=== PATIENT | female | born 2000 | race Two or more races ===

== ENCOUNTER 2022-06-22 07:51 | Emergency (ER) | payer MEDICAID, SELFPAY ==
--- NOTE | ~2022-06-22 | US_ITS ---
EXAMINATION: OB ULTRASOUND CLINICAL INFORMATION: 17 weeks . Left lower quadrant pain. Gestational age from earlier outside ultrasound 17 weeks 5 days with estimated date of delivery of 11/25/2022. COMPARISON: None TECHNIQUE: Transabdominal second trimester OB ultrasound. Dedicated survey was not performed. FINDINGS: There is a single viable intrauterine fetus in cephalic position. heart rate is 144 bpm. measurements: BPD 4 cm suggesting gestational age 18 weeks 1 day. OFD 4.9 cm suggesting gestational age 17 weeks 5 days. Head circumference 14.3 cm suggesting gestational age 14 weeks 4 days. Abdominal circumference 11.5 cm suggesting gestational age 17 weeks 3 days. Femur length 2.5 cm suggesting gestational age 17 weeks 5 days. measurements are concordant. From today's measurements weight is estimated at 7 ounces or 1 9 8 g which is 33rd percentile for patient's gestational age. There is a left lateral/fundal placenta with grade 1 changes. Deepest pocket of amniotic fluid measures 4.8 cm. There is a left lateral/fundal placenta with grade 0 changes. Cervical length measures 3.4 cm. The right ovary is normal-appearing and measures 3.1 x 1.5 x 2.7 cm. The left ovary measures 3.8 x 2.3 x 2.2 cm. There is a 1.6 x 1 x 1.5 cm left ovarian cyst probably representing a corpus luteum. There is no fluid in the pelvis. From today's measurements, gestational age is estimated at 17 weeks 5 days with estimated date of delivery of 11/25/2022. This agrees from date from earlier outside ultrasound. US/US OB limited IMPRESSION: Single viable intrauterine . Size agrees with date from earlier outside exam. Normal-appearing placenta.
[2022-06-22 07:55] VITALS: BP 131/77; PULSE 88; RESP 16; TEMP 36.6; O2SAT 100; BMI 24.5
--- NOTE | 2022-06-22 08:38 | ED.PREGNANCY ---
HPI - General Chief complaint: Abdominal Pain Stated complaint: , abd pain Time Seen by Provider: 06/22/22 08:12 Source: patient Mode of arrival: ambulatory Limitations: no limitations History of Present Illness HPI Narrative: 21-year-old female who is [id number] currently 17 weeks being followed by [facility] was a woman OBGYN last menstrual period February 08 with a due date of November 22 presenting to the ED with complaints of left lower quadrant abdominal pain/cramping over the past few days worse today. She denies any fevers, chills, dizziness, headaches, neck pain/stiffness, trouble swallowing or breathing, chest pain or shortness of breath, dyspnea on exertion, orthopnea, palpitations, paresthesias, flank pain, hematuria, abnormal vaginal discharge, vaginal bleeding, radiation of the abdominal pain, recent travel or sick contacts, recent falls or trauma, rashes, diarrhea constipation, black or bloody stools or any other symptoms complaints or concerns at this time. MD Complaint: abdominal pain Onset (ago): day(s) (Past few days worse today) Pain Consistency: constant Location: abdomen (Left lower quadrant) Severity: mild Quality: Cramping and Aching Relieving factors: none Exacerbating factors: none Associated symptoms: denies other symptoms Vaginal discharge: none Vaginal bleeding: none Date of Last Menstrual Period: 02/08/22 Hx Last Menstrual Period: Normal Patient : Yes Expected Date of Delivery: 11/22/22 Number of Weeks : 17 OB History - Current : no complications care: followed by OB and previous ultrasound confirms IUP Related Data Allergies Allergy/AdvReac Type Severity Reaction Status Date / Time No Known Allergies Allergy Verified 06/22/22 07:54 Review of Systems Review of Systems: Constitutional : No Fever, No Chills ENT/Mouth : No sore throat, No Rhinorrhea Eyes: No Eye Pain, No Redness Cardiovascular : No Chest Pain, No SOB Respiratory : No Cough, No Sputum, No Wheezing Gastrointestinal : No Nausea, No Vomiting, No Diarrhea, positive abdominal pain, Genitourinary : No irregular bleeding, No Dysuria, No Urinary Frequency, No pelvic pain Musculoskeletal : No Myalgias Skin : No rash Neuro : No Weakness, No Headache Psych : No Anxiety/Panic, No Depression Heme/Lymph: No bruising, No Lymphadenopathy Endocrine : No Polyuria, No Polydipsia Yes all other systems are reviewed and are negative [facility] Past Medical History Attestation statement: The following information was validated with the patient. Source: old records reviewed and nursing notes reviewed Date of Last Menstrual Period: 02/08/22 Hx Last Menstrual Period: Normal Social History Social History Advance Directives: No Advance Directives Information Provided: No Patient : Yes Physical Exam Vital Signs: Vital Signs: Last Vital Signs Temp 98 F 06/22/22 07:55 Pulse 88 06/22/22 07:55 Resp 16 06/22/22 07:55 BP 131/77 06/22/22 07:55 Pulse Ox 100 06/22/22 07:55 O2 Del Method 06/22/22 07:55 BMI result Body Mass Index 24.5 vital signs have been reviewed as normal and appeared to be correct. Blood pressure normal. Heart rate normal. Respiration rate normal. Temperature normal. Oxygen saturation normal. Appearance: Alert. Oriented X3. No acute distress. Head: Normal external exam. Normocephalic. Atraumatic. Eyes: PERRLA. EOMI. Conjunctiva and sclera normal. Eyelids normal. ENT: Pharynx normal. Uvula midline. Moist mucous membranes. No trismus noted. No drooling noted. No muffled voice noted. Neck: Normal inspection. Neck supple. FROM. No adenopathy. Thyroid Normal. No meningeal signs. No neck mass noted. CVS: Normal heart rate and rhythm. Heart sound normal. No murmurs noted. Pulses normal throughout. Respiratory: No respiratory distress. Painless inspiration. Breath sounds normal. No wheezes/rales/rhonchi noted. Chest nontender. No accessory muscle usage noted or decreased air movement noted. Abdomen: Soft and mild tenderness palpation to left suprapubic area. Bowel sounds normal in all 4 quadrants. No distention noted. No organomegaly noted. No visible injury noted. : Supervised by KURTIS Vigil. Normal external appearance of urethra. No lesions/lacerations or discharge or tenderness noted. Speculum exam normal appearance/palpation of vagina normal. The cervix is mildly erythematous and some thin clear/light yellow colored discharge is noted although cervix is closed. No additional discharge is noted from the cervix and no foreign bodies are noted. Otherwise no vaginal erythema. No foreign bodies noted. No vaginal laceration/lesions or active bleeding noted. No tissue present in vagina. No vaginal mass noted. No vaginal swelling noted. No vaginal tenderness noted. Normal palpation of cervix. Cervical os is closed. No cervical lesion/mass. No Bartholin cyst noted. No cervical motion tenderness noted. Negative chandelier sign. Normal bimanual exam. Uterine size normal. Bladder normal to palpation. Uterine consistency normal. Normal cervical palpation. Uterine mobility normal. Uterine shape normal. Normal adnexa. Normal rectovaginal exam. Back: No CVA tenderness. Full range of motion noted. Skin: Skin warm and dry. Normal skin color. Normal skin turgor. No rashes/lesions/lacerations noted. Extremities: No lower extremity edema. Extremities exhibit normal range of motion. Extremities nontender. Neuro: Oriented X 3. No motor deficit. No sensory deficit. Reflexes normal. Course Course Course Narrative: 8:20am - 21-year-old female who is [id number] currently 17 weeks being followed by [facility] was a woman OBGYN last menstrual period February 08 with a due date of November 22 presenting to the ED with complaints of left lower quadrant abdominal pain/cramping over the past few days worse today. Plan: Labs, UA, serum quant, Rh factor, OB ultrasound re-evaluate. Reevaluation(s) Reevaluation #1: - labs returned and all within normal limits. Serum quant appropriately elevated at 22,884. UA within normal limits no evidence of UTI. - OB ultrasound revealed single viable intrauterine size agrees with dates from earlier outside exam normal-appearing placenta - I did a vaginal exam nd spoke to Dr. Pradhan due to small amount of discharge and mild erythema to cervix although cervical os is closed and patient reports she was recently tested for all STDs along with bacterial vaginosis and Trichomonas and was negative last 1 by her OB. Therefore we sent swabs and Dr. Pradhan reported she can follow up with her OBGYN as scheduled and to return if any new or worsening symptoms. Patient understands agrees with this plan. Time: 11:31 [facility] - OB/Uterine Contractions Medical Records Attestation: I reviewed the patient's medical records. Lab Data Attestation: I reviewed the patient's lab results. Result diagrams: 06/22/22 08:54 06/22/22 08:54 Labs: Lab Results 06/22/22 06/22/22 06/22/22 Range/Units 08:53 08:54 08:54 WBC 8.4 (4.8-10.8) X10*3/uL RBC 3.95 L (4.20-5.50) X10*6/uL Hgb 12.9 (12.0-16.0) g/dl Hct 36.5 L (37.0-47.0) % MCV 92.4 (80.0-98.0) fL MCH 32.7 (27.0-33.0) pg MCHC 35.3 H (31.0-35.0) g/dl RDW 11.9 (11.0-16.0) % Plt Count 227 (160-400) X10*3/uL MPV 10.3 (9.4-12.3) fL Immature Gran % (Auto) 0.4 (0.0-0.4) % Neut % (Auto) 69.7 (45-73) % Lymph % (Auto) 18.0 L (20-40) % [place] % (Auto) 5.8 (2-11) % Eos % (Auto) 5.9 H (0-4) % Baso % (Auto) 0.2 (0-2) % Lymph # (Auto) 1.5 (1.2-4.9) X10*3/uL [place] # (Auto) 0.5 (0.1-1.2) X10*3/uL Eos # (Auto) 0.5 H (0.0-0.4) X10*3/uL Baso # (Auto) 0.0 (0.0-0.2) X10*3/uL Abs Immat Gran (auto) 0.03 (0.00-0.03) X10*3/uL Absolute Neuts (auto) 5.9 (2.0-8.3) x10*3/uL Absolute Nucleated RBC 0.000 (0.0-0.012) X10*3/uL Nucleated RBC % (auto) 0.0 (0.0-0.2) /100WBC Sodium 138 (135-145) mmol/L Potassium 3.9 (3.3-5.1) mmol/L Chloride 102 (96-108) mmol/L Carbon Dioxide 27 (22-29) mmol/L Anion Gap 13 (12-20) BUN 9 (9-16) mg/dL Creatinine 0.59 (0.5-1.4) mg/dL Estim Creat Clear Calc 126.5 Estimated GFR > 60 Random Glucose 73 (60-115) mg/dL Calcium 9.1 (8.4-10.2) mg/dL Magnesium 1.9 (1.6-2.6) mg/dL Total Bilirubin 0.3 (0.0-1.0) mg/dL AST 13 (5-31) U/L ALT 15 (0-31) U/L Alkaline Phosphatase 50 (39-117) U/L Total Protein 6.9 (6.5-8.0) g/dL Albumin 3.9 (3.5-5.0) g/dL Beta HCG, Quant mIU/mL Urine Color Urine Appearance Urine pH (5.0-8.0) Ur Specific [place] (1.005-1.025) Urine Protein (Neg-Trace) mg/dL Urine Glucose (UA) (Negative) mg/dL Urine Ketones (Negative) mg/dL Urine Blood (Negative) Urine Nitrite (Negative) Ur Leukocyte Esterase (Negative) Blood Type B Positive 06/22/22 06/22/22 Range/Units 08:54 08:54 WBC (4.8-10.8) X10*3/uL RBC (4.20-5.50) X10*6/uL Hgb (12.0-16.0) g/dl Hct (37.0-47.0) % MCV (80.0-98.0) fL MCH (27.0-33.0) pg MCHC (31.0-35.0) g/dl RDW (11.0-16.0) % Plt Count (160-400) X10*3/uL MPV (9.4-12.3) fL Immature Gran % (Auto) (0.0-0.4) % Neut % (Auto) (45-73) % Lymph % (Auto) (20-40) % [place] % (Auto) (2-11) % Eos % (Auto) (0-4) % Baso % (Auto) (0-2) % Lymph # (Auto) (1.2-4.9) X10*3/uL [place] # (Auto) (0.1-1.2) X10*3/uL Eos # (Auto) (0.0-0.4) X10*3/uL Baso # (Auto) (0.0-0.2) X10*3/uL Abs Immat Gran (auto) (0.00-0.03) X10*3/uL Absolute Neuts (auto) (2.0-8.3) x10*3/uL Absolute Nucleated RBC (0.0-0.012) X10*3/uL Nucleated RBC % (auto) (0.0-0.2) /100WBC Sodium (135-145) mmol/L Potassium (3.3-5.1) mmol/L Chloride (96-108) mmol/L Carbon Dioxide (22-29) mmol/L Anion Gap (12-20) BUN (9-16) mg/dL Creatinine (0.5-1.4) mg/dL Estim Creat Clear Calc Estimated GFR Random Glucose (60-115) mg/dL Calcium (8.4-10.2) mg/dL Magnesium (1.6-2.6) mg/dL Total Bilirubin (0.0-1.0) mg/dL AST (5-31) U/L ALT (0-31) U/L Alkaline Phosphatase (39-117) U/L Total Protein (6.5-8.0) g/dL Albumin (3.5-5.0) g/dL Beta HCG, Quant 99278 mIU/mL Urine Color Yellow Urine Appearance Clear Urine pH 6.5 (5.0-8.0) Ur Specific [place] 1.020 (1.005-1.025) Urine Protein Negative (Neg-Trace) mg/dL Urine Glucose (UA) Negative (Negative) mg/dL Urine Ketones Negative (Negative) mg/dL Urine Blood Negative (Negative) Urine Nitrite Negative (Negative) Ur Leukocyte Esterase Negative (Negative) Blood Type Imaging Data OB US: Attestation: I personally reviewed and interpreted this imaging study as follows: Radiologist's impression: TECHNIQUE: Transabdominal second trimester OB ultrasound. Dedicated survey was not performed.? FINDINGS: There is a single viable intrauterine fetus in cephalic position. heart rate is 144 bpm. measurements: BPD 4 cm suggesting gestational age 18 weeks 1 day. OFD 4.9 cm suggesting gestational age 17 weeks 5 days. Head circumference 14.3 cm suggesting gestational age 14 weeks 4 days. Abdominal circumference 11.5 cm suggesting gestational age 17 weeks 3 days. Femur length 2.5 cm suggesting gestational age 17 weeks 5 days. measurements are concordant. From today's measurements weight is estimated at 7 ounces or 1 9 8 g which is 33rd percentile for patient's gestational age. There is a left lateral/fundal placenta with grade 1 changes. Deepest pocket of amniotic fluid measures 4.8 cm. There is a left lateral/fundal placenta with grade 0 changes. Cervical length measures 3.4 cm. The right ovary is normal-appearing and measures 3.1 x 1.5 x 2.7 cm. The left ovary measures 3.8 x 2.3 x 2.2 cm. There is a 1.6 x 1 x 1.5 cm left ovarian cyst probably representing a corpus luteum. There is no fluid in the pelvis. From today's measurements, gestational age is estimated at 17 weeks 5 days with estimated date of delivery of 11/25/2022. This agrees from date from earlier outside ultrasound. US/US OB limited IMPRESSION: Single viable intrauterine . Size agrees with date from earlier outside exam. Normal-appearing placenta. Procedures Perimortem Number of Weeks : 17 Discharge Plan Discharge Clinical Impression: Abdominal pain affecting Patient Disposition: Home, Self-Care Instructions: Abdominal Pain in (ED) Referrals: Physician,Unknown J [Primary Care Provider] - 2 days (your pcp/obgyn)
[2022-06-22 09:05] LABS: MANUAL DIFF FLAG NO
[2022-06-22 09:06] LABS: Basophils Percent Auto 0.2 % (0-2); Eosinophils Absolute Auto 0.5 X10*3/uL (0.0-0.4); Eosinophils Percent Auto 5.9 % (0-4); Hematocrit 36.5 % (37.0-47.0); Hemoglobin 12.9 g/dl (12.0-16.0); Imm Gran Abs Auto 0.03 X10*3/uL (0.00-0.03); Imm Gran Pct Auto 0.4 % (0.0-0.4); Lymphocytes Absolute Auto 1.5 X10*3/uL (1.2-4.9); Mean Corpuscular HGB Conc 35.3 g/dl (31.0-35.0); Mean Corpuscular Hemoglobin 32.7 pg (27.0-33.0); Mean Corpuscular Volume 92.4 fL (80.0-98.0); Mean Platelet Volume 10.3 fL (9.4-12.3); Monocytes Absolute Auto 0.5 X10*3/uL (0.1-1.2); Monocytes Percent Auto 5.8 % (2-11); Neutrophils Absolute Auto 5.9 x10*3/uL (2.0-8.3); Neutrophils Percent Auto 69.7 % (45-73); Platelet Count 227 X10*3/uL (160-400); Red Blood Count 3.95 X10*6/uL (4.20-5.50); Red Cell Distribution Width 11.9 % (11.0-16.0); White Blood Count 8.4 X10*3/uL (4.8-10.8)
[2022-06-22 09:10] LABS: Appearance Urine Clear; Color Urine Yellow; Glucose Urine UA Negative (Negative); Leukocyte Esterase Urine Negative (Negative); Nitrite Urine Negative (Negative); PH 6.5 (5.0-8.0); Urine Blood Negative (Negative); Urine Ketones Negative (Negative); Urine Protein Negative (Neg-Trace)
[2022-06-22 09:23] LABS: Alanine Aminotransferase 15 U/L (0-31); Albumin Level 3.9 g/dL (3.5-5.0); Alkaline Phosphatase 50 U/L (39-117); Anion Gap 13 (12-20); Aspartate Amino Transferase 13 U/L (5-31); Bilirubin Total 0.3 mg/dL (0.0-1.0); Blood Urea Nitrogen 9 mg/dL (9-16); Calcium 9.1 mg/dL (8.4-10.2); Carbon Dioxide 27 mmol/L (22-29); Chloride 102 mmol/L (96-108); Creatinine Clr Calc Pharmacy 126.5; Estimated Glomerular Filt Rate > 60; Glucose Random 73 mg/dL (60-115); Magnesium 1.9 mg/dL (1.6-2.6); Potassium 3.9 mmol/L (3.3-5.1); Sodium 138 mmol/L (135-145); Total Protein 6.9 g/dL (6.5-8.0)
[2022-06-22 09:47] LABS: HCG Quantitative 22884 mIU/mL
--- NOTE | 2022-06-22 11:31 | PM.OBCN ---
OB Consult Note - [facility] Data Service Date: 06/22/22 Primary Care Provider: Unknown Physician Narrative I was consulted on Raji Jin who is a 21 year old para 0 currently 17 weeks being presented to the emergency room complaining of left lower quadrant abdominal pain/cramping on and off over the past few days worse today.? She denies any vaginal discharge or bleeding, no urinary or GI symptoms, no feverish less or chills. Workup done emergency room include CBC, chemistry, urine all negative. Ob ultrasound was done also on was negative OB [facility] Social History Social History Advance Directives: No Advance Directives Information Provided: No Patient : Yes Meds Allergies Allergy/AdvReac Type Severity Reaction Status Date / Time No Known Allergies Allergy Verified 06/22/22 07:54 OB Physical Exam Physical Exam Additional Comments: Per JENNIFER Hall in the emergency room, abdominal exam is soft and benign with no tenderness, pelvic exam yellowish discharge , closed cervix, no other findings Evaluation Baseline FHR:: 150 OB Consult Results Labs CBC & Chem 7: 06/22/22 08:54 06/22/22 08:54 Labs: Short CBC 06/22/22 Range/Units 08:54 WBC 8.4 (4.8-10.8) X10*3/uL Hgb 12.9 (12.0-16.0) g/dl Hct 36.5 L (37.0-47.0) % Plt Count 227 (160-400) X10*3/uL BMP 06/22/22 08:54 Sodium 138 Potassium 3.9 Chloride 102 Carbon Dioxide 27 BUN 9 Creatinine 0.59 Calcium 9.1 Liver Function 06/22/22 Range/Units 08:54 Total Bilirubin 0.3 (0.0-1.0) mg/dL AST 13 (5-31) U/L ALT 15 (0-31) U/L Alkaline Phosphatase 50 (39-117) U/L Albumin 3.9 (3.5-5.0) g/dL Urine 06/22/22 Range/Units 08:54 Urine Color Yellow Urine Appearance Clear Urine pH 6.5 (5.0-8.0) Ur Specific [place] 1.020 (1.005-1.025) Urine Protein Negative (Neg-Trace) mg/dL Urine Glucose (UA) Negative (Negative) mg/dL OB - CN: A/P Assessment and Plan (1) Pelvic cramping: Status: Acute Plan GC and BV panel taken. Since CBC, chemistry, urine, OB ultrasound in addition to abdominal pelvic exam all are within normal, recommended to call immune is, PA in the emergency room to discharge the patient with close follow-up with the patient OBGYN as soon as possible. Instructions were given to patient to come back in case of persistence or worsening of her abdominal pain, any leakage of fluid or bleeding, fever above 100.4. I spent a total of 20 minutes reviewing the chart, communicating with the ER provider and documenting in the medical record. This note was generated with a voice recognition program. Some errors may have been overlooked during the review of this note. Sometimes these errors may affect the content or meaning of a given sentence.
[2022-06-22 18:31] LABS: CT PCR NOT DETECTED (Not Detect.); NG PCR NOT DETECTED (Not Detect.)
[2022-06-23 13:06] LABS: BV Int Neg Control Negative (Negative); BV Int Pos Control Positive (Positive)
== END 2022-06-22 11:51 | disposition home or self-care (01) ==
PROVIDERS: Physician Assistant Medical; Emergency Provider Emergency Medicine
DX: O26.92 Pregnancy related conditions, unspecified, second trimester (principal); Z3A.17 17 weeks gestation of pregnancy; Z79.899 Other long term (current) drug therapy
CPT/HCPCS: 36415; 76815; 80053; 81003; 83735; 84702; 85025; 86900; 86901; 87480; 87491; 87510; 87591; 87660; 99282; 99284

== ENCOUNTER 2023-06-06 09:54 | Emergency (ER) | payer OTHER, SELFPAY ==
--- NOTE | ~2023-06-06 | US_ITS ---
EXAMINATION: US OBSTETRICAL ULTRASOUND CLINICAL INFORMATION: . Bleeding. Cramping. Beta hCG level 06/06/2023 14,311 COMPARISON: Pelvic ultrasound 06/22/2022 LMP: Uncertain. Gestational age by maternal dates is uncertain. Estimated date of delivery by maternal dates is uncertain. TECHNIQUE: Transabdominal and transvaginal grayscale and color Doppler imaging. FINDINGS: Single intrauterine gestational sac is present. Yolk sac is present. No pole is seen. No subchorionic hemorrhage. Mean gestational sac diameter 0.82 cm.. This correlates to dating of 5 weeks 3 days. MATERNAL ADNEXA: The right maternal ovary measures 3.7 x 2.3 x 2 cm. The left maternal ovary measures 3.8 x 4.3 x 3.6 cm. Cortical pseudocyst measuring 2 x 2.1 x 2.3 cm There is no significant maternal adnexal mass. No maternal pelvic ascites. US/US OB pelvic and transvaginal IMPRESSION: Single intrauterine gestation. DEXA is seen but no pole the spine. Gestational age by mean sac diameter correlates to 5 weeks 3 days. There is no subchorionic hemorrhage.
[2023-06-06 10:10] VITALS: BP 133/89; PULSE 73; RESP 17; TEMP 36.1; O2SAT 98
[2023-06-06 10:28] LABS: MANUAL DIFF FLAG NO
[2023-06-06 10:29] LABS: Basophils Percent Auto 0.3 % (0-2); Eosinophils Absolute Auto 0.2 X10*3/uL (0.0-0.4); Eosinophils Percent Auto 3.2 % (0-4); Hematocrit 40.8 % (37.0-47.0); Hemoglobin 13.3 g/dl (12.0-16.0); Imm Gran Abs Auto 0.02 X10*3/uL (0.00-0.03); Imm Gran Pct Auto 0.3 % (0.0-0.4); Lymphocytes Absolute Auto 1.9 X10*3/uL (1.2-4.9); Lymphocytes Percent Auto 27.2 % (20-40); Mean Corpuscular HGB Conc 32.6 g/dl (31.0-35.0); Mean Corpuscular Hemoglobin 28.1 pg (27.0-33.0); Mean Corpuscular Volume 86.1 fL (80.0-98.0); Mean Platelet Volume 11.2 fL (9.4-12.3); Monocytes Absolute Auto 0.5 X10*3/uL (0.1-1.2); Monocytes Percent Auto 7.8 % (2-11); Neutrophils Absolute Auto 4.2 x10*3/uL (2.0-8.3); Neutrophils Percent Auto 61.2 % (45-73); Platelet Count 285 X10*3/uL (160-400); Red Blood Count 4.74 X10*6/uL (4.20-5.50); Red Cell Distribution Width 14.9 % (11.0-16.0); White Blood Count 6.8 X10*3/uL (4.8-10.8)
[2023-06-06 10:31] LABS: Appearance Urine Clear; Color Urine Yellow; Glucose Urine UA Negative (Negative); Leukocyte Esterase Urine Negative (Negative); Nitrite Urine Negative (Negative); PH 6.5 (5.0-9.0); Specific Gravity - Urine >= 1.030 (1.005-1.025); Urine Blood Negative (Negative); Urine Ketones Negative (Negative); Urine Protein Negative (Neg-Trace)
[2023-06-06 10:48] LABS: Alanine Aminotransferase 28 U/L (0-31); Albumin Level 4.4 g/dL (3.5-5.0); Alkaline Phosphatase 76 U/L (39-117); Anion Gap 15 (12-20); Aspartate Amino Transferase 17 U/L (5-31); Bilirubin Total 0.4 mg/dL (0.0-1.0); Blood Urea Nitrogen 8 mg/dL (9-16); Calcium 9.3 mg/dL (8.4-10.2); Carbon Dioxide 21 mmol/L (22-29); Chloride 107 mmol/L (96-108); Creatinine Clr Calc Pharmacy 111.5; Estimated Glomerular Filt Rate > 60; Glucose Random 95 mg/dL (60-115); Potassium 3.8 mmol/L (3.3-5.1); Sodium 139 mmol/L (135-145); Total Protein 7.7 g/dL (6.5-8.0)
[2023-06-06 10:51] LABS: HCG Quantitative 14311 mIU/mL
--- NOTE | 2023-06-06 10:57 | ED.PREGNANCY ---
HPI - General Chief complaint: Vaginal Bleeding Stated complaint: vaginal bleeding ? Time Seen by Provider: 06/06/23 10:34 Source: patient Mode of arrival: ambulatory Limitations: no limitations History of Present Illness HPI Narrative: 22 yo female unknown LMP and unknown gestational age who presents to the ER for evaluation of vaginal bleeding after she had a positive home test 5 days ago. She states before she got she was suffering from heavy vaginal bleeding and was on control to help regulate things but it was not working. She does not know when her last menstrual period was. She states she started having bright red vaginal bleeding and spotting at the end of last week and it has been slowly going away. None today. She reports some bilateral lower abdominal cramping intermittently as well. MD Complaint: vaginal bleeding Onset (ago): day(s) Pain Consistency: intermittent Severity: mild Quality: Cramping Relieving factors: none Exacerbating factors: none Associated symptoms: denies other symptoms Vaginal discharge: none Vaginal bleeding: light Related Data : 2 Para: 1 Allergies Allergy/AdvReac Type Severity Reaction Status Date / Time No Known Allergies Allergy Verified 06/22/22 07:54 Review of Systems Review of Systems: Yes all other systems are reviewed and are negative PMFSH Past Medical History : 2 Para: 1 Social History Social History Advance Directives: No Advance Directives Information Provided: No Physical Exam Vital Signs: Vital Signs: Last Vital Signs Temp 96.9 F 06/06/23 10:10 Pulse 73 06/06/23 10:10 Resp 17 06/06/23 10:10 BP 133/89 06/06/23 10:10 Pulse Ox 98 06/06/23 10:10 O2 Del Method Room Air 06/06/23 10:10 BMI result Body Mass Index 30.0 Appearance: Alert. Oriented X3. No acute distress. Head: normocephalic, atraumatic. Eyes: Pupils equal, round and reactive to light. ENT: Pharynx normal. No tonsillar swelling or exudate. Neck: Normal inspection. Neck supple. CVS: Normal heart rate and rhythm. Pulses normal. Respiratory: No respiratory distress. Breath sounds normal. Abdomen: Soft and nontender. +BS x4 Skin: Skin warm and dry. Normal skin color. Normal skin turgor. No rashes. Extremities: No lower extremity edema. No joint swelling. Neuro/psych: Oriented X 3. No motor deficit. No sensory deficit. CN II-XII intact. Normal speech and cognition. Medical Decision Making Medical Decision Making [facility] Narrative: 22 yo female unknown LMP and unknown gestational age who presents to the ER for evaluation of vaginal bleeding after she had a positive home test 5 days ago. No active bleeding today. HCG 14, 311. unknown LMP. U/S reviewed - early IUP apprecaited. Went to re-evaluate and examine the patient however she eloped from the ER prior to results. Differential Diagnosis Differential Diagnoses: The differential diagnosis associated with the presentation includes implantation bleeding, normal 1st trimester spotting, early miscarriage, threatened , ectopic Lab Data [facility] Lab Attestation statement: I reviewed the patient's lab results. no anemia 06/06/23 10:22 06/06/23 10:22 Labs: Lab Results 06/06/23 06/06/23 06/06/23 Range/Units 10:22 10:22 10:22 WBC 6.8 (4.8-10.8) X10*3/uL RBC 4.74 (4.20-5.50) X10*6/uL Hgb 13.3 (12.0-16.0) g/dl Hct 40.8 (37.0-47.0) % MCV 86.1 (80.0-98.0) fL MCH 28.1 (27.0-33.0) pg MCHC 32.6 (31.0-35.0) g/dl RDW 14.9 (11.0-16.0) % Plt Count 285 D (160-400) X10*3/uL MPV 11.2 (9.4-12.3) fL Immature Gran % (Auto) 0.3 (0.0-0.4) % Neut % (Auto) 61.2 (45-73) % Lymph % (Auto) 27.2 (20-40) % [place] % (Auto) 7.8 (2-11) % Eos % (Auto) 3.2 (0-4) % Baso % (Auto) 0.3 (0-2) % Lymph # (Auto) 1.9 (1.2-4.9) X10*3/uL [place] # (Auto) 0.5 (0.1-1.2) X10*3/uL Eos # (Auto) 0.2 (0.0-0.4) X10*3/uL Baso # (Auto) 0.0 (0.0-0.2) X10*3/uL Abs Immat Gran (auto) 0.02 (0.00-0.03) X10*3/uL Absolute Neuts (auto) 4.2 (2.0-8.3) x10*3/uL Absolute Nucleated RBC 0.000 (0.0-0.012) X10*3/uL Nucleated RBC % (auto) 0.0 (0.0-0.2) /100WBC Sodium 139 (135-145) mmol/L Potassium 3.8 (3.3-5.1) mmol/L Chloride 107 (96-108) mmol/L Carbon Dioxide 21 L (22-29) mmol/L Anion Gap 15 (12-20) BUN 8 L (9-16) mg/dL Creatinine 0.73 (0.5-1.4) mg/dL Estim Creat Clear Calc 111.5 Estimated GFR > 60 Random Glucose 95 (60-115) mg/dL Calcium 9.3 (8.4-10.2) mg/dL Total Bilirubin 0.4 (0.0-1.0) mg/dL AST 17 (5-31) U/L ALT 28 (0-31) U/L Alkaline Phosphatase 76 (39-117) U/L Total Protein 7.7 (6.5-8.0) g/dL Albumin 4.4 (3.5-5.0) g/dL Beta HCG, Quant 51329 mIU/mL Urine Color Urine Appearance Urine pH (5.0-9.0) Ur Specific [place] (1.005-1.025) Urine Protein (Neg-Trace) mg/dL Urine Glucose (UA) (Negative) mg/dL Urine Ketones (Negative) mg/dL Urine Blood (Negative) Urine Nitrite (Negative) Ur Leukocyte Esterase (Negative) Blood Type 06/06/23 06/06/23 Range/Units 10:22 11:24 WBC (4.8-10.8) X10*3/uL RBC (4.20-5.50) X10*6/uL Hgb (12.0-16.0) g/dl Hct (37.0-47.0) % MCV (80.0-98.0) fL MCH (27.0-33.0) pg MCHC (31.0-35.0) g/dl RDW (11.0-16.0) % Plt Count (160-400) X10*3/uL MPV (9.4-12.3) fL Immature Gran % (Auto) (0.0-0.4) % Neut % (Auto) (45-73) % Lymph % (Auto) (20-40) % [place] % (Auto) (2-11) % Eos % (Auto) (0-4) % Baso % (Auto) (0-2) % Lymph # (Auto) (1.2-4.9) X10*3/uL [place] # (Auto) (0.1-1.2) X10*3/uL Eos # (Auto) (0.0-0.4) X10*3/uL Baso # (Auto) (0.0-0.2) X10*3/uL Abs Immat Gran (auto) (0.00-0.03) X10*3/uL Absolute Neuts (auto) (2.0-8.3) x10*3/uL Absolute Nucleated RBC (0.0-0.012) X10*3/uL Nucleated RBC % (auto) (0.0-0.2) /100WBC Sodium (135-145) mmol/L Potassium (3.3-5.1) mmol/L Chloride (96-108) mmol/L Carbon Dioxide (22-29) mmol/L Anion Gap (12-20) BUN (9-16) mg/dL Creatinine (0.5-1.4) mg/dL Estim Creat Clear Calc Estimated GFR Random Glucose (60-115) mg/dL Calcium (8.4-10.2) mg/dL Total Bilirubin (0.0-1.0) mg/dL AST (5-31) U/L ALT (0-31) U/L Alkaline Phosphatase (39-117) U/L Total Protein (6.5-8.0) g/dL Albumin (3.5-5.0) g/dL Beta HCG, Quant mIU/mL Urine Color Yellow Urine Appearance Clear Urine pH 6.5 (5.0-9.0) Ur Specific [place] >= 1.030 H (1.005-1.025) Urine Protein Negative (Neg-Trace) mg/dL Urine Glucose (UA) Negative (Negative) mg/dL Urine Ketones Negative (Negative) mg/dL Urine Blood Negative (Negative) Urine Nitrite Negative (Negative) Ur Leukocyte Esterase Negative (Negative) Blood Type B Positive Independent Interpretation I performed an independent interpretation of an: Ultrasound Interpretation: early IUP, no pole External Record Review External record reviewed: Prior outpatient labs and Prior outpatient radiology Critical Care Time Critical Care Time Critical Care Time: No Discharge Plan Discharge Clinical Impression: Patient Disposition: Elopement
--- NOTE | 2023-06-06 14:22 | PC.NURSE ---
pt not in room at this time. pa reports ? elopement s/p US
== END 2023-06-06 15:14 | disposition left against medical advice (07) ==
PROVIDERS: Emergency Provider Emergency Medicine
DX: O46.91 Antepartum hemorrhage, unspecified, first trimester (principal); Z3A.01 Less than 8 weeks gestation of pregnancy
CPT/HCPCS: 36415; 76801; 76817; 80053; 81003; 84702; 85025; 86900; 86901; 99282; 99284